=== PATIENT | female | born 1985 | race Two or more races ===

== ENCOUNTER 2017-02-27 18:01 | Emergency (ER) | payer MEDICAID ==
[~2017-02-27] VITALS: Ht 160 cm; Wt 94.0 kg
[~2017-02-27 18:01] MED LIST: PREN1TAB49
[2017-02-27 18:12] VITALS: Ht 160 cm; Wt 94.0 kg
[2017-02-27] MEDS ORDERED: ACETAMINOPHEN 325 MG TAB PO STA (22:20)
[2017-02-27] MEDS ORDERED: ONDANSETRON 4 MG INJ IV STA (22:20)
--- NOTE | 2017-02-27 22:51 | ERD ---
ER Documentation Chief Complaint Chief Complaint HEADACHE X2 DAYS HPI 31-year-old female presents here in emergency department for complaints of lower abdominal pain vomiting episodes, patient is , has been having hyperemesis gravidarum 1-2 months. Patient is approximately 15 weeks , 4 para 3 0. Patient has been having vomiting episodes, unable to keep anything down, patient started to have the headache 2 days ago, throbbing pain 4/10 scale, on and off lower abdominal pain. Patient EDC 2017. Patient denies any fever or chills. Patient denies any vaginal bleeding. ROS All systems reviewed and are negative except as per history of present illness. Medications Home Meds Reported Medications Vits W-Ca,Fe,Fa(<1MG) () 1 Tab Tablet 01/09/10 Allergies Allergies: Coded Allergies: No Known Drug Allergy (Verified Allergy, Unknown, 01/09/10) PMhx/Soc Medical and Surgical Hx: pt denies Medical Hx, pt denies Surgical Hx History of Surgery: No Anesthesia Reaction: No Hx Neurological Disorder: No Hx Respiratory Disorders: No Hx Cardiac Disorders: No Hx Psychiatric Problems: No Hx Miscellaneous Medical Probl: No Hx Alcohol Use: Yes Hx Substance Use: Yes Hx Tobacco Use: Yes Smoking Status: Never smoker FmHx Family History: No coronary disease, No diabetes, No other Physical Exam Vitals Vital Signs Date Time Temp Pulse Resp B/P Pulse Ox O2 Delivery O2 Flow Rate FiO2 02/27/17 18:12 98.6 80 16 124/74 98 Physical Exam GENERAL: The patient is well developed and appropriate for usual state of health, in no apparent distress. CHEST: Clear to auscultation bilaterally. There are no rales, wheezes or rhonchi. HEART: Regular rate and rhythm. No murmurs, clicks, rubs or gallops. No S3 or S4. ABDOMEN: Soft, nontender and nondistended. Good bowel sounds. No rebound or guarding. No gross peritonitis. No gross organomegaly or masses. No Mario sign or McBurney point tenderness. BACK: No midline or flank tenderness. EXTREMITIES: Equal pulses bilaterally. There is no peripheral clubbing, cyanosis or edema. No focal swelling or erythema. Full range of motion. Grossly neurovascularly intact. NEURO: Alert and oriented. Cranial nerves 2-12 intact. Motor strength in all 4 extremities with 5/5 strength. Sensation grossly intact. Normal speech and gait. SKIN: There is no apparent rash or petechia. The skin is warm and dry. HEMATOLOGIC AND LYMPHATIC: There is no evidence of excessive bruising or lymphedema. No gross cervical, axillary, or inguinal lymphadenopathy. Result Diagram: 02/27/17223402/27/172234 Results 24 hrs Laboratory Tests Test 02/27/17 22:35 White Blood Count 8.710^3/ul Red Blood Count 4.4710^6/ul Hemoglobin 13.6g/dl Hematocrit 39.6% Mean Corpuscular Volume 88.6fl Mean Corpuscular Hemoglobin 30.4pg Mean Corpuscular Hemoglobin Concent 34.3g/dl Red Cell Distribution Width 13.0% Platelet Count 74428^3/UL Mean Platelet Volume 11.0fl Neutrophils % 65.5% Lymphocytes % 26.5% Monocytes % 6.4% Eosinophils % 1.0% Basophils % 0.3% Nucleated Red Blood Cells % 0.0/100WBC Neutrophils # 5.710^3/ul Lymphocytes # 2.310^3/ul Monocytes # 0.610^3/ul Eosinophils # 0.110^3/ul Basophils # 0.010^3/ul Nucleated Red Blood Cells # 0.010^3/ul Urine Color RANJEET Urine Clarity SLIGHTLY CLOUDY Urine pH 5.0 Urine Specific [place] 1.030 Urine Ketones 2+mg/dL Urine Nitrite NEGATIVEmg/dL Urine Bilirubin NEGATIVEmg/dL Urine Urobilinogen 2+mg/dL Urine Leukocyte Esterase NEGATIVELeu/ul Urine Microscopic RBC 1/HPF Urine Microscopic WBC 1/HPF Urine Squamous Epithelial Cells FEW/HPF Urine Bacteria FEW/HPF Urine Mucus MODERATE/HPF Urine Hemoglobin NEGATIVEmg/dL Urine Glucose NEGATIVEmg/dL Urine Total Protein 1+mg/dl Sodium Level 141mmol/L Potassium Level 3.7mmol/L Chloride Level 105mmol/L Carbon Dioxide Level 23mmol/L Anion Gap 17 Blood Urea Nitrogen 9mg/dl Creatinine 0.58mg/dl Glucose Level 88mg/dl Calcium Level 9.5mg/dl Total Bilirubin 0.5mg/dl Direct Bilirubin 0.00mg/dl Indirect Bilirubin 0.5mg/dl Aspartate Amino Transf (AST/SGOT) 21IU/L Alanine Aminotransferase (ALT/SGPT) 31IU/L Alkaline Phosphatase 51IU/L Total Protein 8.6g/dl Albumin 4.7g/dl Globulin 3.90g/dl Albumin/Globulin Ratio 1.20 Beta HCG, Quantitative 93608.0mIU/ml Current Medications Medications (Trade) Dose Ordered Sig/Jason Route PRN Reason Start Time Stop Time Status Last Admin Dose Admin Acetaminophen (Tylenol Tab) 650 mg ONCE STAT PO 02/27/17 22:20 02/27/17 22:22 DC 02/27/17 22:45 Ondansetron HCl (Zofran Inj) 4 mg ONCE STAT IV 02/27/17 22:20 02/27/17 22:22 DC 02/27/17 22:45 Patient was given medicines for fever control here in the emergency department. After treatment, patient temperature improved and lower. Patient appears well and is hemodynamically stable. Patient was given Zofran here in the emergency department. After treatment, patient was able to tolerate po fluids here in the emergency department without any vomiting. There is no signs and symptoms of dehydration. PROCEDURE: US OB. CLINICAL INDICATION: Abdominal pain TECHNIQUE: Multiple sonographic images of the pelvis were obtained. The images were reviewed on a PACS workstation. COMPARISON: No prior studies are available for comparison. FINDINGS: There is a single live intrauterine gestation. Cardiac activity is present with 150 beats per minute. There is a variable position. Measurements were made in order to determine age. The results are as follows: BPD = 2.78 cm, 15 weeks 0 days HC = 10.2 cm, 14 weeks 6 days AC = 8.34 cm, 14 weeks 5 days FL = 1.49 cm, 14 weeks 3 days. Estimated gestational age of approximately 14 weeks 5 days. The estimated date of delivery is 08/23/2017. The EFW = 100.87 g, 0 pounds 4 ounces . The placenta is posterior and grade 0. There is no evidence for an abruption. There is the suggestion of a low-lying placenta. Amniotic fluid volume appears to be adequate on the submitted images. There are no adnexal masses seen. IMPRESSION: Single live intrauterine gestation of approximately 14 weeks 5 days based on ultrasound measurements. The estimated date of delivery is 08/23/2017. Suggestion of low-lying placenta. Follow-up is recommended. RPTAT: LESLIE Signed By: Randall Arias M.d 02/28/2017 12:01:36 AM Procedures/MDM Medical decision making: Patient symptoms of headache lower abdominal pain and vomiting episodes nonspecific at this time, possible viral syndrome, the vomiting can be also from hyperemesis gravidarum, patient's headache most likely is from also continues vomiting. Patient has had the vomiting episodes for a while now. The headache just started 2 days ago. No symptoms of neurologic emergencies, no symptoms of meningitis, negative Kernig sign, negative Brudzinski sign, neurologic exam is normal. Lower abdominal pain is intermittent, no abdominal tenderness noted, low suspicion for any acute abdominal emergencies, patient is stable at 14 weeks, there is no subchorionic hemorrhage noted, no symptoms of appendicitis, diverticulitis, pyelonephritis, no urinary tract infection. No bleeding noted at this time. Patient was advised to follow-up with primary care doctor 1-2 days for reevaluation of symptoms, will be given prescription for Tylenol and Zofran, strict return to ER precautions for high fever, or any other worsening symptoms. Patient was to see OB doctor in 2 days for reevaluation of symptoms. Disposition: Home. Stable. Departure Diagnosis: Primary Impression: Vomiting Vomiting type: unspecified Vomiting Intractability: unspecified Nausea presence: unspecified Qualified Code: R11.10 - Vomiting, intractability of vomiting not specified, presence of nausea not specified, unspecified vomiting type Additional Impressions: Headache Headache type: unspecified Headache chronicity pattern: acute headache Intractability: not intractable Qualified Code: R51 - Acute nonintractable headache, unspecified headache type Abdominal pain Abdominal location: lower abdomen, unspecified Qualified Code: R10.30 - Lower abdominal pain Intrauterine Condition: Stable Patient Instructions: Abdominal Pain in Children, Self-Care for Headaches, Vomiting (6Y-Adult) ZARINA RICCI NP Feb 27, 2017 22:51
[2017-02-28] MEDS ORDERED: ACET500C5 PO (01:29)
[2017-02-28] MEDS ORDERED: ONDA4TAB14 PO (01:29)
--- NOTE | 2017-02-28 08:36 | RADRPT ---
PROCEDURE: US OB. CLINICAL INDICATION: Abdominal pain TECHNIQUE: Multiple sonographic images of the pelvis were obtained. The images were reviewed on a PACS workstation. COMPARISON: No prior studies are available for comparison. FINDINGS: There is a single live intrauterine gestation. Cardiac activity is present with 150 beats per minut e. There is a variable position. Measurements were made in order to determine age. The results are as follows: BPD =2.78 cm, 15 weeks 0 days HC =10.2 cm, 14 weeks 6 days AC =8.34 cm, 14 weeks 5 days FL =1.49 cm, 14 weeks 3 days. Estimated gestational age of approximately 14 weeks 5 days. The estimated date of delivery is 08/23/2017. The EFW = 100.87 g, 0 pounds 4 ounces . The placenta is posterior and grade 0. There is no evidence for an abruption. There is the suggestio n of a low-lying placenta. Amniotic fluid volume appears to be adequate on the submitted images. There are no adnexal masses seen. IMPRESSION: Single live intrauterine gestation of approximately 14 weeks 5 days based on ultrasound measurements . The estimated date of delivery is 08/23/2017. Suggestion of low-lying placenta. Follow-up is js mmended. RPTAT: HJES .Randall Arias MD, MD Date Time Electronically viewed and signed by .Randall Arias MD, on 02/28/2017 00:01 .S/
== END 2017-02-28 01:43 | disposition home or self-care (01) ==
LOC: FTE 18:01
DX: O21.9 Vomiting of pregnancy, unspecified (principal); O99.89 Other specified diseases and conditions complicating pregnancy, childbirth and the puerperium; R51 Headache; R10.30 Lower abdominal pain, unspecified; R10.2 Pelvic and perineal pain; Z3A.14 14 weeks gestation of pregnancy; Z87.891 Personal history of nicotine dependence
CPT/HCPCS: 36415; 76805; 80053; 81001; 84702; 85025; 86900; 86901; 96374; J2405; Z7502; Z7610

== ENCOUNTER 2017-06-07 21:04 | Outpatient (CLI) | END 2017-06-08 00:15 | disposition home or self-care (01) ==

== ENCOUNTER 2017-06-21 10:03 | Outpatient (CLI) | END 2017-06-21 13:40 | disposition home or self-care (01) ==

== ENCOUNTER 2017-08-11 21:20 | Inpatient (IN) | END 2017-08-15 13:10 | disposition home or self-care (01) | DRG 767 ==